=== PATIENT | male | born 1950 | race Caucasian/White ===

== ENCOUNTER 2020-03-11 07:36 | Day surgery (SDC) | payer MEDICARE, OTHER ==
--- NOTE | 2020-03-10 14:46 | NUR ---
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
[~2020-03-11] VITALS: Ht 180 cm; Wt 75.7 kg
[2020-03-11] VITALS (10 sets, daily range): BP systolic 117–138; BP diastolic 16–87
[~2020-03-11 07:36] MED LIST: CLOPIDOGREL75 MG ORAL; CRESTOR10 M2 ORAL; Vancomycin 1 GM in D5W 275 ML IVPB ONE
--- NOTE | 2020-03-11 08:06 | Pre-Procedure Note/Attestation ---
Pre-Procedure Note/Attestation Complete Prior to Procedure Planned Procedure: not applicable Procedure Narrative: TURBT RPG Indications for Procedure Pre-Operative Diagnosis: bladder cancer Attestation I attest that I discussed the nature of the procedure; its benefits; risks and complications; and alternatives (and the risks and benefits of such alternatives), prior to the procedure, with the patient (or the patient's legal outside medical sales representative). I attest that, if there was a reasonable possibility of needing a blood transfusion, the patient (or the patient's legal outside medical sales representative) was given the [facility] standardized written summary, pursuant to the Parveen Levi Blood Safety Act ([place] Health and Safety Code # 1645, as amended). I attest that I re-evaluated the patient just prior to the surgery and that there has been no change in the patient's H&P, except as documented below: Oscar Ovalle MD Mar 11, 2020 08:06
[2020-03-11] MEDS ORDERED: Iothalamate Meglumine 60% 30ML INJ ONE (08:25)
[2020-03-11] MEDS ORDERED: DiphenhydrAMINE 50mg/ml Inj IVP PRN (08:30)
[2020-03-11] MEDS ORDERED: Midazolam 2mg/2ml Inj IVP PRN (08:30)
[2020-03-11] MEDS ORDERED: LR 1000ml 1,000 ML IVLG SCH (08:30)
[2020-03-11] MEDS ORDERED: Acetaminophen (Non formulary) 100 ML IV ONE (08:30)
[2020-03-11] MEDS ORDERED: Hydromorphone 0.5mg/0.5ml inj IVP PRN (08:30)
[2020-03-11] MEDS ORDERED: HYDROcodone/Acetamin 5/325 tab ORAL PRN ×2 (08:30→12:30)
[2020-03-11] MEDS ORDERED: Meperidine 25mg/0.5ml Inj (FOR RIGORS ONLY) IV PRN (08:30)
[2020-03-11] MEDS ORDERED: LORazepam Inj 2mg/ml 1ml IV PRN (08:30)
[2020-03-11] MEDS ORDERED: oxyCODONE HCL/Acetaminophen 5/325mg ORAL PRN (08:30)
[2020-03-11] MEDS ORDERED: Metoclopramide 10mg/2ml Inj IVP PRN (08:30)
[2020-03-11] MEDS ORDERED: Atropine Sulfate 0.4mg/ml inj IVP PRN (08:30)
[2020-03-11] MEDS ORDERED: Labetalol 5mg/ml 20ml vial IV PRN (08:30)
[2020-03-11] MEDS ORDERED: Ketorolac 30mg Inj IV PRN ×2 (08:30)
[2020-03-11] MEDS ORDERED: HYDROcodone/Acetamin 7.5/325 tab ORAL PRN (08:30)
[2020-03-11] MEDS ORDERED: fentaNYL 100 mcg/2 mL IV PRN (08:30)
--- NOTE | 2020-03-11 08:58 | Anethesia Preoperative Eval ---
Anesthesia Pre-op PMH/ROS General Date of Evaluation: Mar 11, 2020 Time of Evaluation: 11:32 Anesthesiologist: Otto ASA Score: ASA 3 Mallampati Score Class I : Soft palate, uvula, fauces, pillars visible Class II: Soft palate, uvula, fauces visible Class III: Soft palate, base of uvula visible Class IV: Only hard plate visible Mallampati Classification: Class II Surgeon: Vasquez Diagnosis: Bladder Tumor Surgical Procedure: TURBT Family History: no anesthesia problems Allergies: Coded Allergies: TRIMETHOPRIM (Verified Allergy, Unknown, 03/10/20) SULFAMETHOXAZOLE (Verified Adverse Reaction, Intermediate, "did not feel well", 03/10/20) Medications: see eMAR Patient NPO?: Yes Past Medical History Cardiovascular: Reports: HTN, other - HL Neurologic/Psychiatric: Reports: CVA Hematology/Immune: Reports: other - Bladder CA PSxH Narrative: Nephrectomy Anesthesia Pre-op Phys. Exam Physician Exam Last Vital Signs Date Time Temp Pulse Resp B/P (MAP) Pulse Ox O2 Delivery O2 Flow Rate FiO2 03/11/20 08:05 Room Air 03/11/20 08:04 97.5 81 18 136/87 96 Constitutional: NAD Neurologic: CN 2-12 intact Cardiovascular: RRR Respiratory: CTA Gastrointestinal: S/NT/ND Airway Exam Mallampati Score: Class II MO: limited ROM: full Teeth: missing, intact Anesthesia Pre-op A/P Risk Assessment & Plan Assessment: ASA 3 Plan: GA, SED, GlideScope Status Change Before Surgery: No Pre-Antibiotics Dru Gram Ancef IV Given Within 1 Hr of Incision: Yes Time Given: 11:41 Varun Menjivar MD Mar 11, 2020 08:58
--- NOTE | 2020-03-11 09:00 | Immediate Post-Op Evaluation ---
Immediate Post-Op Evalulation Immediate Post-Op Evalulation Procedure: TURBT Date of Evaluation: Mar 11, 2020 Time of Evaluation: 12:44 IV Fluids: 1000 LR Blood Products: 0 Estimated Blood Loss: 25 Urinary Output: 0 Blood Pressure Systolic: 129 Pulse Rate: 80 Respiratory Rate: 16 O2 Sat by Pulse Oximetry: 97 Temperature (Fahrenheit): 98 Pain Score (1-10): 2 Nausea: No Vomiting: No Complications 0 Patient Status: awake, reacts, patent, extubated, none Hydration Status: adequate Dru Gram Ancef IV Given Within 1 Hr of Incision: Yes Time Given: 11:41 Varun Menjivar MD Mar 11, 2020 09:00
[2020-03-11] MEDS ORDERED: Lidocaine 1% MPF 10mg/ml 5ml ONE (09:26)
[2020-03-11] MEDS ORDERED: Midazolam 2mg/2ml Inj ONE (09:27)
[2020-03-11] MEDS ORDERED: fentaNYL 100 mcg/2 mL IV ONE ×2 (09:27→10:59)
[2020-03-11] MEDS ORDERED: Glycopyrrolate 0.2mg/ml 1ml Vial ONE ×2 (10:50→12:17)
[2020-03-11] MEDS ORDERED: Sterile Water Irrig 1000ml IRRIG ONE (11:30)
[2020-03-11] MEDS ORDERED: NS Irrig 1000ml ONE (11:30)
[2020-03-11] MEDS ORDERED: LR 1000ml ONE (11:30)
[2020-03-11] MEDS ORDERED: NS Irrig 4000ml IRRIG ONE (11:30)
[2020-03-11] MEDS ORDERED: Neostigmine 1mg/ml 10ml Inj ONE (12:17)
--- NOTE | 2020-03-11 12:28 | Brief Operative Note ---
Immediate Post Operative Note Operative Note Pre-op Diagnosis: bladder cancer Procedure: turbt rpg Post-op Diagnosis: same Surgeon: Oscar Ovalle Anesthesia: general Specimen: yes Complications: none Condition: stable Fluids: 500 Implant(s) used?: No Oscar Ovalle MD Mar 11, 2020 12:28
[2020-03-11] MEDS ORDERED: Tylenol #3 tab (300mg/30mg) ORAL PRN (12:30)
[2020-03-11] MEDS ORDERED: HYDROmorphone 1mg/ml Carpuject SUBQ PRN (12:30)
[2020-03-11] MEDS ORDERED: D5 1/2NS 1,000 ML IV SCH (15:00)
--- NOTE | 2020-03-11 15:22 | Diagnostic Imaging Report ---
Retrograde Pyelogram CLINICAL HISTORY: Abdominal/pelvic Pain. Mass COMPARISON: None FINDINGS: Fluoroscopy independent procedure performed for retrograde pyelogram. 14.7 seconds of fluoroscopy time utilized by the ordering physician (Vasquez). Total cumulative dose is 2.35 mGy and 0.99153 mGym2. Total of 2 spot images are obtained. IMPRESSION: FLUOROSCOPY GUIDED PROCEDURE. PLEASE SEE PROCEDURAL/OPERATIVE REPORT.
--- NOTE | 2020-03-16 22:15 | Operative Note - Dictated ---
DATE OF OPERATION: 03/11/2020 PREOPERATIVE DIAGNOSES: History of bladder cancer and renal cancer, rule out CIS. POSTOPERATIVE DIAGNOSES: History of bladder cancer and renal cancer, rule out CIS. OPERATIONS: Cystoscopy, resection of bladder tumor with multiple biopsies, and bilateral retrograde pyelogram. OPERATED BY: Oscar Ovalle MD. ANESTHESIA: General. FINDINGS: A labile bladder exam then was reduced at the surgery. Patient with recurrent UTIs as well as positive cytologies in considering history of multifocal bladder cancer and multiple TURBT. Decision was made to dissect through the procedure with random biopsies with TURBT with retrograde pyelogram. All potential complications were explained. He signed the consent. DESCRIPTION OF PROCEDURE: Brought to the operative room, placed in the lithotomy position, prepped and draped in standard fashion. Under general anesthesia, resectoscope was introduced. Retrograde pyelogram was performed with the left side showing normal visible ureter. After that, using a TUR scope, multiple runs of resections was done on the lateral right and left anterior to the bladder. Specimens were sent for pathologic examination. Tumor was fulgurated. Urine was clear. Cantu catheter was placed temporarily for 48 hours. Bladder was irrigated and Cantu left indwelling. Patient tolerated the procedure well. Oscar Ovalle M.D. DR: DIANNE JOB#: [id number] CC:
== END 2020-03-11 14:25 | disposition home or self-care (01) ==
LOC: SUR 07:36
DX: Z08 Encounter for follow-up examination after completed treatment for malignant neoplasm (principal); Z85.51 Personal history of malignant neoplasm of bladder; I10 Essential (primary) hypertension; Z90.5 Acquired absence of kidney; Z88.2 Allergy status to sulfonamides; Z88.8 Allergy status to other drugs, medicaments and biological substances; Z86.73 Personal history of transient ischemic attack (TIA), and cerebral infarction without residual deficits
CPT/HCPCS: 52005; 52234; 74420; 76000; 94003; J0131; J0690; J1100; J2250; J2405; J2704; J2710; J3010; J7120; Q9961; U0002; 94150